=== PATIENT | female | born 1995 | race Caucasian/White ===

== ENCOUNTER 2024-07-03 17:14 | Inpatient (IN) ==
--- OUTSIDE RECORDS SUMMARY | 2024-07-04 08:14 | External Medical Summary | Summary of Care ---
Author Name Unknown Organization [facility] Address [address] [place] [address] Phone [phone] Care Team Providers Care Automotive Brake Specialist Name Role Phone Unavailable Primary Care Provider Unavailabl e Reason for Visit * Reason Comments Outpatient Testing Encounter Details Date Type Department Care Team (Late st Contact Info) Description 06/20/2024 8:40 AM EST Laboratory Laboratory, [facility] [address] [place] [id number] [facility] [address] [place] [address] Arrived Allergies No known active allergiesdocumented as of this encounter (statuses as of 06/20/2024) Medications 28-0.8 MG Oral Tablet Take by mouth. Active Breast PumpIndications :Normal in third trimester For lactating mother for . 1 Each 4 Active Methylphenidate HCl ER (OSM) 27 MG Oral Tablet Extended Release (Concerta) 4 Active documented as of this encounter (statuses as of 06/20/2024) Active Problems Problem Noted Date Diagnosed Date Rubella non-immune status, antepartum 12/29/2023 Depressive disorder 12/28/2023 Normal 12/28/2023 Depression complicating , antepartum Overview (12/28/2023): Was on Concerta for ADHD, stopped early . Estimated Date of Delivery Comme nts Yes 07/03/2024 Based on last me nstrual period of 09/27/2023 documented as of this encounter (statuses as of 06/20/2024) Immunizations Name Administration Dates Next Due TDAP, Age 7 and older, IM (Adacel) 04/28/2024 documented as of this encounter Social History Tobacco Use Types Packs/Day Years Used Date Smoking Tobacco: Never Smokeless Tobacco: Never Alcohol Use Standard Drinks/Week Comments Not Currently 0 (1 standard drink = 0.6 oz pur e alcohol) Hunger Vital Sign Answer Date Recorded Within the past 12 months, y ou worried that your food would run out before you got the money to buy more. Never true 12/14/19 24 Within the past 12 months, t he food you bought just didn't last and you didn't have money to get more. Never true 12/14/2023 [place] Depression Scale Answer Date Recorded [place] Depression Scale Total 16 04/28/2024 The thought of harming myself has occurred to me . Hardly ever 04/28/2024 Childcare Answer Date Recorded Do you feel overwhelmed with taking care of a child, family member or friend? No 12/14/2023 Does your family need help f inding childcare? (Household - for ages 0-17 years) Not on file 12/14/2023 Clothing Answer Date Recorded Have you been unable to get clothing when it was really needed? No 12/14/2023 Is your family able to get c lothes or diapers when needed? (Household - for ages 0-17 years) Not on file 12/14/2023 Personal Safety Answer Date Recorded Do you feel unsafe or have concerns for your saf ety? No 12/14/2023 Do you have concerns for you r family's safety? (Household - for ages 0-17 years) Not on file 12/14/2023 Utilities Answer Date Recorded Do you have trouble paying y our heating, water, or electric bill? No 12/14/2023 Is your family able to pay t he heat, water, or electric bill? (Household - for ages 0-17 years) Not on file 12/14/2023 Does your family have access to good internet? (Household - for ages 0-17 years) Not on file 12/14/2023 Employment Status Answer Date Recorded Are you unemployed or without regular income? No 12/14/2023 Does the household have a re gular source of income? (Household - for ages 0-17 years) Not on file 12/14/2023 Social Connections Answer Date Recorded How often do you feel lonely or isolated from th ose around you? Rarely 12/14/2023 Financial Resource Strain Answer Date R ecorded Do you have any trouble payi ng for your medications, or do you think you might in the future? No 12/14/2023 Does your family have troubl e paying for medicine? (Household - for ages 0-17 years) Not on file 12/14/2023 Transportation Needs Answer Date Record ed Do you have trouble getting a ride to medical visits or work? (Adult - for ages 18 years and over) Not on file 12/14/2023 Does your family have a hard time getting a ride to doctors visits? (Household - for ages 0-17 years) Not on file 12/14/2023 Has lack of transportation k ept you from medical appointments, meetings, work, or from getting things needed for daily living? Check all that apply. No 12/14/2023 Do you (or your family) have trouble finding or paying for a ride (transportation)? (Household - for ages 0-17 years) Not on file 12/14/2023 Housing Stability Answer Date Recorded Do you currently live in a s helter or have no steady place to sleep at night? No 12/14/2023 Do you think you are at risk of becoming homeless? (Adult - for ages 18 years and over) Not on file 12/14/2023 Does your family worry about paying for your home or becoming homeless? (Household - for ages 0-17 years) Not on file 0 12/14/2023 Are you homeless or worried that you might be in the future? No 12/14/2023 Are you (or your family) familia eless or worried that you might be in the future? (Household - for ages 0-17 years) Not on file Food Insecurity Answer Date Recorded Do you need food for this week? No 12/14/2023 Are you able to get enough f ood for your family? (Household - for ages 0-17 years) Not on file 12/14/2023 Does your family need food t his week? (Household - for ages 0-17 years) Not on file 12/14/2023 Do you always have enough fo od for your family? (Household - for ages 0-17 years) Not on file 12/14/2023 Estimated Date of Delivery Comme nts Yes 07/03/2024 Based on last me nstrual period of 09/27/2023 Sex and Gender Information Value Date Recorded Sex Assigned at Female 12/14/2023 10:12 AM EDT Legal Sex Female 6:08 AM EST Gender Identity Female 12/14/2023 10:12 AM EDT Sexual Orientation Straight 12/14/2023 10 :12 AM EDT documented as of this encounter Plan of Treatment Upcoming Encounters Date Type Department Care Team (Late st Contact Info) Description 06/23/2024 1:30 PM EST Nurse Only Gynecology/Obstetrics [facility] [address] [facility] [place] [address] Gw, Nurse Obgyn Injection [address] [place] [address] 06/29/2024 4:30 PM EST Office Visit Gynecology/Obstetrics [facility] [address] [place] [address] Diandra Guevara PA-C [address] [place] [address] 07/04/2024 10:00 AM EST Office Visit Gynecology/Obstetrics [facility] [address] [place] [address] Sarita Aviles CRNP [address] [place] [address] 07/21/2024 10:00 AM EST Telemedicine Psychology, [place] [address] [place] [address] Odalis Boucher PsyD [address], [place] [id number] Health Maintenance Due Date Last Done Comments Depression Monitoring 2006 COVID-19 Vaccine ( - 2023-25 season) 2024 Influenza Vaccine (FLU shot) (#1) 2024 Pap Smear 12/27/2026 12/28/2023 DTap/Tdap Vaccines (6 - Td or Tdap) 04/28/2034 04/28/2024, 03/24/1996, 06/29/1995, Additional history exists Hepatitis B Vaccine Completed 09/07/1995, 02/19/1995, 1994 HPV (Gardasil) Vaccine Aged Out No lo nger eligible based on patient's age to complete this topic MENINGOCOCCAL (MENACTRA/MENVEO) Aged Out No longer eligible based on patient's age to complete this topic Pneumococcal Vaccine: Pediatrics (0 to 5 Years) and At-Risk Patients (6 to 64 Years) Aged Out No longer eligible based on patient's age to complete this topic documented as of this encounter Goals Goal Patient Goal Type Associated Problems Recent Progress Patient-Stated? Author Reminders Care Plan OB Reminders No Dario, Provider documented as of this encounter Medical Devices Not on filedocumented as of this encounter Additional Health Concerns Active Problems Noted Date Diagnosed Date OB Reminders 01/15/2024 documented as of this encounter
--- OUTSIDE RECORDS SUMMARY | 2024-07-04 08:14 | External Medical Summary | Summary of Care ---
Author Name Unknown Organization [facility] Address [address] [place] [facility] [place] [address] Phone [phone] Care Team Providers Care Loop Tacker Name Role Phone Unavailable Primary Care Provider Unavailabl e Reason for Visit * Reason Comments Return Visit Encounter Details Date Type Department Care Team (Late st Contact Info) Description 06/29/2024 4:30 PM EST Office Visit Gynecology/Obstetric s [facility] [address] [place] [address] Diandra Guevara PA-C [address] [place] [address] Normal in third trimester*; Depression complicating , antepartum; Rubella non-immune status, antepartum Allergies No known active allergiesdocumented as of this encounter (statuses as of 06/29/2024) Medications 28-0.8 MG Oral Tablet Take by mouth. Active Breast PumpIndications :Normal in third trimester For lactating mother for . 1 Each 4 Active Methylphenidate HCl ER (OSM) 27 MG Oral Tablet Extended Release (Concerta) 4 Active documented as of this encounter (statuses as of 06/29/2024) Active Problems Problem Noted Date Diagnosed Date Rubella non-immune status, antepartum 12/29/2023 Depressive disorder 12/28/2023 Normal 12/28/2023 Depression complicating , antepartum Overview (12/28/2023): Was on Concerta for ADHD, stopped early . Estimated Date of Delivery Comme nts Yes 07/03/2024 Based on last me nstrual period of 09/27/2023 documented as of this encounter (statuses as of 06/29/2024) Immunizations Name Administration Dates Next Due TDAP, [...] money to get more. Never true 12/14/2023 [place] Depression Scale Answer Date Recorded [place] Depression Scale Total 16 04/28/2024 The thought [...] AM EDT documented as of this encounter Last Filed Vital Signs Vital Sign Reading Time Taken Comments Blood Pressure 122/84 06/29/2024 4:25 PM EST Pulse - - Temperature - - Respiratory Rate - - Oxygen Saturation - - Inhaled Oxygen Concentration - - Weight 98 kg (216 lb) 06/29/2024 4:25 PM EST Height - - Body Mass Index 37.08 06/12/2024 1:53 PM EST documented in this encounter Progress Notes * Diandra Guevara PA-C - 06/29/2024 4:51 PM EST 39w3d Doing well. Had two borderline BP two weeks ago. Labs normal and pressures have seemed to normalize. Her blood pressure today is 122/84. Denies VB, LOF, contractions. Having some BH contractions rather. Baby is active. Would like cervical check. Also asking about membrane sweep however she is undecided. Ultimately she decided against it today. IOL scheduled 07/04/2023. Labor and preeclampsia precautions reviewed in meantime. Rework Machine Operator Documentation Provider requested pediatrics teacher. Name of pediatrics teacher: Keisha Yang LPN Cervix: 3 posterior Diandra Guevara PA-C * Keisha Yang LPN - 06/29/2024 4:26 PM EST 39w3d Denies vaginal bleeding/rom + movement [place] queta Requesting cervical check today documented in this encounter Plan of Treatment Upcoming Encounters Date Type Department Care Team (Late st Contact Info) Description 07/21/2024 10:00 AM EST Telemedicine [facility], [place] [address] [place] [address] Odalis Boucher, [facility] [address] [place] [address] Health Maintenance Due Date Last Done Comments Depression Monitoring 2006 COVID-19 Vaccine (2023- season) 2024 Influenza Vaccine (FLU shot) (#1) [...] 5 Years) and At-Risk Patients (6 to 18 Years and 19+ Years) Aged Out No longer eligib le based on patient's age to complete this topic documented as of this encounter Goals Goal Patient Goal Type Associated Problems Recent Progress Patient-Stated? Author Reminders Care Plan OB Reminders No Jessiehart, Provider documented as of this encounter Medical Devices Not on filedocumented as of this encounter Visit Diagnoses Diagnosis Normal in third trimester- Primary Depression complicating , antepartum Mental disorders of mother, antepartum Rubella non-immune status, antepartum Other specified complication, antepartum documented in this encounter Additional Health Concerns Active Problems Noted Date Diagnosed Date OB Reminders 01/15/2024 documented as of this encounter
--- OUTSIDE RECORDS SUMMARY | 2024-07-04 08:14 | External Medical Summary | Summary of Care ---
Author Name Unknown Organization [facility] Address [address] [place] [address] Phone [phone] Care Team Providers Care Concrete Products Machine Operator Name Role Phone Unavailable Primary Care Provider Unavailabl e Reason for Visit * Reason Comments Blood Pressure Check Encounter Details Date Type Department Care Team (Late st Contact Info) Description 06/23/2024 1:30 PM EST Nurse Only Gynecology/Obstetrics [facility] [address] [facility] [place] [address] Gw, Nurse Obgyn Injection [address] [facility] [place] [address] Blood Pressure Check Allergies No known active allergiesdocumented as of this encounter (statuses as of 06/23/2024) Medications 28-0.8 MG Oral Tablet Take by mouth. Active Breast PumpIndications :Normal in third trimester For lactating mother for . 1 Each 4 Active Methylphenidate HCl ER (OSM) 27 MG Oral Tablet Extended Release (Concerta) 4 Active documented as of this encounter (statuses as of 06/23/2024) Active Problems Problem Noted Date Diagnosed Date Rubella non-immune status, antepartum 12/29/2023 Depressive disorder 12/28/2023 Normal 12/28/2023 Depression complicating , antepartum Overview (12/28/2023): Was on Concerta for ADHD, stopped early . Estimated Date of Delivery Comme nts Yes 07/03/2024 Based on last me nstrual period of 09/27/2023 documented as of this encounter (statuses as of 06/23/2024) Immunizations Name Administration Dates Next Due TDAP, [...] money to get more. Never true 12/14/2023 [place] Depression Scale Answer Date Recorded [place] Depression Scale Total 16 04/28/2024 The thought [...] Reading Time Taken Comments Blood Pressure 122/84 06/23/2024 1:42 PM EST Pulse - - Temperature - - Respiratory Rate - - Oxygen Saturation - - Inhaled Oxygen Concentration - - Weight - - Height - - Body Mass Index - - documented in this encounter Progress Notes * Dahlia Morin CMA - 06/23/2024 1:42 PM EST 38w4d BP check today. Reviewed with Mark in office today. Patient advised to keep appointment on 06/29 and call with any issues/symptoms. Pt agreeable to plan. documented in this encounter Plan of Treatment Upcoming Encounters Date Type Department Care Team (Late st Contact Info) Description 06/29/2024 4:30 PM EST [facility] [address] [place] [address] Diandra Guevara PA-C [address] [place] [address] 07/21/2024 10:00 AM EST Telemedicine [facility] [address] [place] [phone] Odalis Boucher [facility] [address] [place], [place] [phone] Health Maintenance Due Date Last Done Comments [...] Author Reminders Care Plan OB Reminders No Mychart, Provider documented as of this encounter Medical Devices Not on filedocumented as of this encounter Visit Diagnoses Diagnosis BP check- Primary Screening for hypertension Normal state, incidental Depression complicating , antepartum Mental disorders of mother, antepartum Rubella non-immune status, antepartum Other specified complication, antepartum documented in this encounter Additional Health Concerns Active Problems Noted Date Diagnosed Date OB Reminders 01/15/2024 documented as of this encounter
--- OUTSIDE RECORDS SUMMARY | 2024-07-04 08:14 | External Medical Summary | Summary of Care ---
Author Name Unknown Organization [facility] Address [address] [place] [address] Phone [phone] Care Team Providers Care Clam Sorter Name Role Phone Unavailable Primary Care Provider Unavailabl e Reason for Visit * Reason Comments Return Visit Encounter Details Date Type Department Care Team (Late st Contact Info) Description 06/20/2024 8:00 AM EST Office Visit Gynecology/Obstetric s [facility] [address] [place] [address] Sarita Aviles CRNP [address] [place] [address] Normal in third trimester*; Depression complicating , [...] 06/20/2024) Immunizations Name Administration Dates Next Due DTP/HIB (Tetramune) 03/24/1996, 6,04/23/1995, 995 Hepatitis B, 0-19 yrs 09/07/1995,02/19/1995,07/0 06/1994 MMR - Measles/Mumps/Rubella Vaccine 03/24/1996 OPV - Polio Virus Vaccine (Oral) 03/24/1996,03/29,02/19/1995 TDAP, Age 7 and older, IM (Adacel) 04/28/2024 Varicella Vaccine (Chicken Pox) 12/08/1995 documented as of this encounter Social History [...] money to get more. Never true 12/14/2023 [place] Depression Scale Answer Date Recorded [place] Depression Scale Total 16 04/28/2024 The thought [...] No 12/14/2023 Does the household have a unm children's hospitallar source of income? (Household - for ages [...] Sign Reading Time Taken Comments Blood Pressure 134/88 06/20/2024 7:57 AM EST Pulse - - Temperature - - Respiratory Rate - - Oxygen Saturation - - Inhaled Oxygen Concentration - - Weight 97.7 kg (215 lb 6.4 oz) 06/20/2024 7:57 A M EST Height - - Body Mass Index 36.97 06/12/2024 1:53 PM EST documented in this encounter Progress Notes * Sarita Aviles CRNP - 06/20/2024 8:13 AM EST 38w1d BP remains mildly elevated. Denies headache, visual changes, RUQ pain. Labs today. No proteinuria on site dip. Baby is active. Denies contractions, bleeding, LOF. IOL scheduled for 07/04. Return in 2-3 days for BP check. BIRGIT Johnston * Dahlia Morin CMA - 06/20/2024 7:57 AM EST 38w1d Denies any concerns documented in this encounter Plan of Treatment Upcoming Encounters Date Type Department Care Team (Late st Contact Info) Description 06/23/2024 1:30 PM EST Nurse Only Gynecology/Obstetrics [facility] [address] [place] [address] Gw, Nurse Obgyn Injection [address] [place] [address] 06/29/2024 4:30 PM EST Office Visit Gynecology/Obstetrics [facility] [address] [place] [address] Diandra Guevara PA-C [address] [place] [address] 07/04/2024 10:00 AM EST Office Visit Gynecology/Obstetrics [facility] [address] [place] [address] Sarita Aviles CRNP [address] [place] [address] 07/21/2024 10:00 AM EST Telemedicine [facility] [place] [address] [place] [phone] Odalis Boucher PsyD [address] [place] [address] Pending Results Name Type Priority Associated Diagnoses Date /Time COMPREHENSIVE METABOLIC PANEL Lab Routine Normal in third trimester 06/20/2024 8:35 AM EST PROTEIN/ CREATININE RATIO, URINE Lab Routine Normal in third trimester 06/20/2024 8:42 AM EST CBC Lab Routine Normal in third trimester 06/20/2024 8:35 AM EST Health Maintenance Due Date Last Done Comments Depression Monitoring 2006 COVID-19 Vaccine ( season) 2024 Influenza Vaccine (FLU shot) (#1) [...] Not on filedocumented as of this encounter Procedures Procedure Name Priority Date/Time Associated Diagnosis Comments URINALYSIS OBSTETRICS, POINT OF CARE Routine 06/20/2024 8:18 AM EST Normal in third trimester documented in this encounter Results * URINALYSIS OBSTETRICS, POINT OF CARE (06/20/2024 8:18 AM EST) Color, Urine Yellow Light Yellow, Yellow 06/20/2024 8:22 AM EST [facility] [place] [facility]10 Clarity, Urine Clear Clear 06/20/2024 8:22 AM EST [facility] [place] [facility] Glucose, Urine Negative Negative mg/dL 06/20/2024 8:22 AM EST [facility] [place] [facility] Bilirubin, Urine Negative Negative 06/20/2024 8:22 AM EST [facility] [place] [facility] Ketone, Urine Negative Negative mg/dL 06/20/2024 8:22 AM EST [facility] [place] [facility] Specific [place], Urine 1.025 1.003 - 1.030 06/20/2024 8:22 AM EST [facility] [place] [facility] Blood, Urine Negative Negative 06/20/2024 8:22 AM EST [facility] [place] [facility] pH, Urine 7.0 5.0, 5.5, 6.0, 6.5, 7.0, 7.5 units 06/20/2024 8:22 AM EST [facility] [place] [facility] Protein, Urine Negative Negative mg/dL 06/20/2024 8:22 AM EST [facility] [place] [facility] Urobilinogen, Urine 0.2 0.2, 1.0 mg/dL 06/20/2024 8:22 AM EST [facility] [place] [facility] Nitrite, Urine Negative Negative 06/20/2024 8:22 AM EST [facility] [place] [facility] Esterase, Urine Negative Negative 06/20/2024 8:22 AM EST [facility] [place] [facility] Urine 06/20/2024 8:18 AM EST 06/20/2024 8:22 AM EST us Sarita Christian McHail DIRECTOR [employer] LAB POINT OF CARE TE ST DOCKED DEVICE UNSOLICITED RESULTS Final Result [facility] [place] [facility] [address] [facility] [place] [address] documented in this encounter Visit Diagnoses Diagnosis Normal in third trimester- Primary Depression complicating , antepartum Mental disorders of mother, antepartum Rubella non-immune status, antepartum Other specified complication, antepartum documented in this encounter Additional Health Concerns Active Problems Noted Date Diagnosed Date OB Reminders 01/15/2024 documented as of this encounter
--- OUTSIDE RECORDS SUMMARY | 2024-07-04 08:15 | External Medical Summary | Summary of Care ---
Author Name Unknown Organization [facility] Address [address] [place] [address] Phone [phone] Care Team Providers Care Handbook Writer Name Role Phone Unavailable Primary Care Provider Unavailabl e Reason for Visit * Reason Comments Return Visit Encounter Details Date Type Department Care Team (Late st Contact Info) Description 06/05/2024 4:00 PM EST Office Visit Gynecology/Obstetric [facility] [address] [place] [address] Kirk García MD [address] [place] [address] Normal in third trimester*; Depression complicating , antepartum; Rubella non-immune status, antepartum Allergies No known active allergiesdocumented as of this encounter (statuses as of 06/05/2024) Medications 28-0.8 MG Oral Tablet Take by mouth. Active Breast PumpIndications :Normal in third trimester For lactating mother for . 1 Each 4 Active Methylphenidate HCl ER (OSM) 27 MG Oral Tablet Extended Release (Concerta) 4 Active documented as of this encounter (statuses as of 06/05/2024) Active Problems Problem Noted Date Diagnosed Date Rubella non-immune status, antepartum 12/29/2023 Depressive disorder 12/28/2023 Normal 12/28/2023 Depression complicating , antepartum Overview (12/28/2023): Was on Concerta for ADHD, stopped early . Estimated Date of Delivery Comme nts Yes 07/03/2024 Based on last me nstrual period of 09/27/2023 documented as of this encounter (statuses as of 06/05/2024) Immunizations Name Administration Dates Next Due TDAP, [...] money to get more. Never true 12/14/2023 [place] Depression Scale Answer Date Recorded [place] Depression Scale Total 16 04/28/2024 The thought [...] Sign Reading Time Taken Comments Blood Pressure 114/72 06/05/2024 4:04 PM EST Pulse - - Temperature - - Respiratory Rate - - Oxygen Saturation - - Inhaled Oxygen Concentration - - Weight 97.1 kg (214 lb) 06/05/2024 4:04 PM EST Height 162.6 cm (5' 4") 06/05/2024 4:04 PM EST Body Mass Index 36.73 06/05/2024 4:04 PM EST documented in this encounter Progress Notes * Kirk García MD - 06/05/2024 4:27 PM EST Pt doing well No complaints GBS culx obtained RTC 1 week documented in this encounter Nursing Notes * Kamla Sewell LPN - 06/05/2024 3:56 PM EST 36w0d GBS today documented in this encounter Plan of Treatment Upcoming Encounters Date Type Department Care Team (Late st Contact Info) Description 07/21/2024 10:00 AM EST Telemedicine [address] [phone] Odalis Boucher, PsyD [address] [place] [address] Pending Results Name Type Priority Associated Diagnoses Date /Time GROUP B STREP CULTURE/PCR Lab Routine Normal in third trimester Depression complicating , antepartum Rubella non-immune status, antepartum 06/05/2024 4:38 PM EST Health Maintenance Due Date Last Done [...] Author Reminders Care Plan OB Reminders No Dario Provider documented as of this encounter Medical [...]
--- OUTSIDE RECORDS SUMMARY | 2024-07-04 08:15 | External Medical Summary | Summary of Care ---
Author Name Unknown Organization [facility] Address [address] [place] [address] Phone [phone] Care Team Providers Care Undercar Specialist Name Role Phone Unavailable Primary Care Provider Unavailabl e Reason for Visit * Reason Comments Return Visit Encounter Details Date Type Department Care Team (Late st Contact Info) Description 06/05/2024 4:00 PM EST Office Visit Gynecology/Obstetric [facility] [address] [place] [address] Kirk García MD [address] [place] [address] Normal in third trimester*; Depression complicating , antepartum; Rubella non-immune status, antepartum Allergies No known active allergiesdocumented as of this encounter (statuses as of 06/06/2024) Medications 28-0.8 MG Oral Tablet Take by mouth. Active Breast PumpIndications :Normal in third trimester For lactating mother for . 1 Each 4 Active Methylphenidate HCl ER (OSM) 27 MG Oral Tablet Extended Release (Concerta) 4 Active documented as of this encounter (statuses as of 06/06/2024) Active Problems Problem Noted Date Diagnosed Date Rubella non-immune status, antepartum 12/29/2023 Depressive disorder 12/28/2023 Normal 12/28/2023 Depression complicating , antepartum Overview (12/28/2023): Was on Concerta for ADHD, stopped early . Estimated Date of Delivery Comme nts Yes 07/03/2024 Based on last me nstrual period of 09/27/2023 documented as of this encounter (statuses as of 06/06/2024) Immunizations Name Administration Dates Next Due TDAP, [...] money to get more. Never true 12/14/2023 [place] Depression Scale Answer Date Recorded [place] Depression Scale Total 16 04/28/2024 The thought [...] Care Team (Late st Contact Info) Description 06/12/2024 2:00 PM EST Office Visit Gynecology/Obstetrics [facility] [address] [facility] [place] [address] Kirk García MD [address] [place] [address] 07/21/2024 10:00 AM EST Telemedicine [facility], [place] [address] [place] [address] [facility] [address] [place] [address] Pending Results Name Type Priority [...]
--- OUTSIDE RECORDS SUMMARY | 2024-07-04 08:15 | External Medical Summary ---
Author Name Unknown Address Unknown Organization K0G:[facility] [place] [address] [place] [address] Laboratory Report Ordering Provider Test Date Status ENZO BOOTH 06/20/2024 08:18:00 Final Observation Date Value Abnormality Reference (Units ) Status Color of Urine by Auto 06/20/2024 08:18:00 Yellow Light Yellow, Yellow Final Clarity, Urine 06/20/2024 08:18:00 Clear Clear Final Glucose [Mass/volume] in Urine by Automated test strip 06/20/2024 08:18:00 Negative Negative (mg/dL) Final Bilirubin.total [Presence] in Urine by Automated test strip 06/20/2024 08:18:00 Negative Negative Final Ketones [Mass/volume] in Urine by Automated test strip 06/20/2024 08:18:00 Negative Negative (mg/dL) Final Specific gravity, Urine 06/20/2024 08:18:00 1.025 1.003-1.030 Final Hemoglobin [Presence] in Urine by Automated test strip 06/20/2024 08:18:00 Negative Negative Final pH, Urine 06/20/2024 08:18:00 7.0 5.0, 5.5, 6.0, 6.5, 7.0, 7.5 (units) Final Protein [Mass/volume] in Urine by Automated test strip 06/20/2024 08:18:00 Negative Negative (mg/dL) Final Urobilinogen, Urine 06/20/2024 08:18:00 0.2 0.2, 1.0 (mg/dL) Final Nitrite [Presence] in Urine by Automated test strip 06/20/2024 08:18:00 Negative Negative Final Leukocyte esterase [Presence] in Urine by Automated test strip 06/20/2024 08:18:00 Negative Negative Final Performing Location [facility] [place] [address] 0 - [address] [place] [address]
--- OUTSIDE RECORDS SUMMARY | 2024-07-04 08:15 | External Medical Summary | Summary of Care ---
Author Name Unknown Organization [facility] Address [address] [place] [address] Phone [phone] Care Team Providers Care Certified Tower Climber Name Role Phone Unavailable Primary Care Provider Unavailabl e Reason for Visit * Reason Comments Return Visit Encounter Details Date Type Department Care Team (Late st Contact Info) Description 05/30/2024 1:30 PM EST Office Visit Gynecology/Obstetric s [facility] [address] [place] [address] Sarita Aviles CRNP [address] [place] [address] Normal in third trimester*; Depression complicating , antepartum; Rubella non-immune status, antepartum Allergies No known active allergiesdocumented as of this encounter (statuses as of 05/30/2024) Medications 28-0.8 MG Oral Tablet Take by mouth. Active Breast PumpIndications :Normal in third trimester For lactating mother for . 1 Each 4 Active Methylphenidate HCl ER (OSM) 27 MG Oral Tablet Extended Release (Concerta) 4 Active documented as of this encounter (statuses as of 05/30/2024) Active Problems Problem Noted Date Diagnosed Date Rubella non-immune status, antepartum 12/29/2023 Depressive disorder 12/28/2023 Normal 12/28/2023 Depression complicating , antepartum Overview (12/28/2023): Was on Concerta for ADHD, stopped early . Estimated Date of Delivery Comme nts Yes 07/03/2024 Based on last me nstrual period of 09/27/2023 documented as of this encounter (statuses as of 05/30/2024) Immunizations Name Administration Dates Next Due TDAP, [...] money to get more. Never true 12/14/2023 [place] Depression Scale Answer Date Recorded [place] Depression Scale Total 16 04/28/2024 The thought [...] Sign Reading Time Taken Comments Blood Pressure 124/68 05/30/2024 1:21 PM EST Pulse - - Temperature - - Respiratory Rate - - Oxygen Saturation - - Inhaled Oxygen Concentration - - Weight 95.5 kg (210 lb 9.6 oz) 05/30/2024 1:21 P M EST Height - - Body Mass Index 36.15 05/10/2024 8:09 AM EST documented in this encounter Progress Notes * Sarita Aviles CRNP - 05/30/2024 1:25 PM EST 35w1d Taking Concerta a few times a week, and her mood/focus is incredibly improved. No concerns today. Baby is active. Denies contractions, bleeding, LOF. BIRGIT Johnston * Dahlia Morin CMA - 05/30/2024 1:21 PM EST 35w1d Denies any concerns documented in this encounter Plan of Treatment Upcoming Encounters Date Type Department Care Team (Late st Contact Info) Description 07/21/2024 10:00 AM EST Telemedicine Psychology, [address] [place] [address] Sander Odalis Sin, [facility] [address] [place] [address] Health Maintenance Due Date Last Done Comments [...]
--- OUTSIDE RECORDS SUMMARY | 2024-07-04 08:15 | External Medical Summary | Summary of Care ---
Author Name Unknown Organization [facility] Address [address] [place] [address] Phone [phone] Care Team Providers Care Anti Tank Missileman Name Role Phone Unavailable Primary Care Provider Unavailabl e Reason for Visit * Reason Comments Return Visit Encounter Details Date Type Department Care Team (Late st Contact Info) Description 06/05/2024 4:00 PM EST Office Visit Gynecology/Obstetric [facility] [address] [place] [address] Kirk García MD [address] [place] [address] Normal in third trimester*; Depression complicating , [...] money to get more. Never true 12/14/2023 [place] Depression Scale Answer Date Recorded [place] Depression Scale Total 16 04/28/2024 The thought [...] Info) Description 07/21/2024 10:00 AM EST Telemedicine [address] [address] Odalis Boucher, PsyD [address] [place] [address] Pending Results Name Type Priority Associated Diagnoses [...]
--- OUTSIDE RECORDS SUMMARY | 2024-07-04 08:15 | External Medical Summary | Summary of Care ---
Author Name Unknown Organization [facility] Address [address] [place] [address] Phone [phone] Care Team Providers Care Gang Tailer Name Role Phone Unavailable Primary Care Provider Unavailabl e Reason for Visit * Reason Comments Return Visit Encounter Details Date Type Department Care Team (Late st Contact Info) Description 06/20/2024 8:00 AM EST Office Visit Gynecology/Obstetric s [facility] [address] [place] [address] Sarita Aviles CRNP [address] [place] [address] Normal in third trimester*; Depression complicating , [...] money to get more. Never true 12/14/2023 [place] Depression Scale Answer Date Recorded [place] Depression Scale Total 16 04/28/2024 The thought [...] 06/23/2024 1:30 PM EST Nurse Only Gynecology/Obstetrics [facility] [address] [facility] [place] [address] Gw, Nurse Obgyn Injection [address] [place] [address] 06/29/2024 4:30 PM EST Office Visit Gynecology/Obstetric[facility] [address] [facility] [place] [address] Diandra Guevara PA-C [address] [place], [place] [address] 07/04/2024 10:00 AM EST Office Visit Gynecology/Obst[facility] [address] [facility] [place] [address] Sarita Aviles CRNP [address] [place] [address] 07/21/2024 10:00 AM EST Telemedicine Psychology, [place] [address] [place] [address] Odalis Boucher [facility] [address] [place] [address] Scheduled Orders Name Type Priority Associated Diagnoses Orde r Schedule COMPREHENSIVE METABOLIC PANEL Lab Routine Normal in third trimester Ordered: 06/20/2024 PROTEIN/ CREATININE RATIO, URINE Lab Routine Normal in third trimester Ordered: 06/20/2024 CBC Lab Routine Normal in third trimester Ordered: 06/20/2024 Health Maintenance Due Date Last Done Comments [...] Author Reminders Care Plan OB Reminders No Ilanat, Provider documented as of this encounter Medical [...] AM EST [facility] [place] [address] Specific [place], Urine 1.025 1.003 - 1.030 06/20/2024 8:22 [...] 1.0 mg/dL 06/20/2024 8:22 AM EST LABORATORY [facility] [place] 57-[address] Nitrite, Urine Negative Negative 06/20/2024 8:22 AM EST LABORATORY [facility] [place] 57[address] Esterase, Urine Negative Negative 06/20/2024 8:22 AM EST LABORATORY [facility] [place] 57-10 Urine 06/20/2024 8:18 AM EST 06/20/2024 8:22 AM EST us Sarita Aviles ASSEMBLY LINE ROBOT OPERATOR LAB POINT OF CARE TE ST DOCKED DEVICE UNSOLICITED RESULTS Final Result LAB[facility]ATORY [facility] [place] [address] [facility] [address] documented in this encounter Visit Diagnoses Diagnosis Normal in third trimester- Primary Depression complicating , antepartum Mental disorders of mother, antepartum Rubella non-immune status, antepartum Other specified complication, antepartum documented in this encounter Additional Health Concerns Active Problems Noted Date Diagnosed Date OB Reminders 01/15/2024 documented as of this encounter
--- OUTSIDE RECORDS SUMMARY | 2024-07-04 08:15 | External Medical Summary ---
Author Name Unknown Address Unknown Organization [facility] - [address] [place] [address] Laboratory Report Ordering Provider Test Date Status ENZO BOOTH 06/20/2024 08:35:49 Final Observation Date Value Abnormality Reference (Units ) Status WBC, Total 06/20/2024 08:35:49 10.49 4.00-10.8 0 (K/uL) Final RBC 06/20/2024 08:35:49 4.28 3.85-5.15 (M/uL) Final Hemoglobin 06/20/2024 08:35:49 13.5 12.0-15.3 (g/dL) Final HCT 06/20/2024 08:35:49 40.4 36.0-45.2 (%) Final MCV 06/20/2024 08:35:49 94.4 81.5-97.5 (fL) Final MCH 06/20/2024 08:35:49 31.5 27.0-34.0 (pg) Final MCHC 06/20/2024 08:35:49 33.4 32.0-36.0 (g/dL) Final RDW 06/20/2024 08:35:49 13.1 11.5-15.5 (%) Final Platelets 06/20/2024 08:35:49 251 140-400 (K /uL) Final MPV 06/20/2024 08:35:49 11.3 6.6-11.1 ( fL) Final Performing Location [facility] 0 - [address] [place] [address]
--- OUTSIDE RECORDS SUMMARY | 2024-07-04 08:15 | External Medical Summary ---
Author Name Unknown Address Unknown Organization K0G:[facility] [place] [address] - [address] [facility] [address] Laboratory Report Ordering Provider Test Date Status EVELYN SANABRIA 06/12/2024 14:09:00 Final Observation Date Value Abnormality Reference (Units ) Status Color of Urine by Auto 06/12/2024 14:09:00 Yellow Light Yellow, Yellow Final Clarity, Urine 06/12/2024 14:09:00 Clear Clear Final Glucose [Mass/volume] in Urine by Automated test strip 06/12/2024 14:09:00 Negative Negative (mg/dL) Final Bilirubin.total [Presence] in Urine by Automated test strip 06/12/2024 14:09:00 Negative Negative Final Ketones [Mass/volume] in Urine by Automated test strip 06/12/2024 14:09:00 Negative Negative (mg/dL) Final Specific gravity, Urine 06/12/2024 14:09:00 1.015 1.003-1.030 Final Hemoglobin [Presence] in Urine by Automated test strip 06/12/2024 14:09:00 Negative Negative Final pH, Urine 06/12/2024 14:09:00 6.5 5.0, 5.5, 6.0, 6.5, 7.0, 7.5 (units) Final Protein [Mass/volume] in Urine by Automated test strip 06/12/2024 14:09:00 Negative Negative (mg/dL) Final Urobilinogen, Urine 06/12/2024 14:09:00 0.2 0.2, 1.0 (mg/dL) Final Nitrite [Presence] in Urine by Automated test strip 06/12/2024 14:09:00 Negative Negative Final Leukocyte esterase [Presence] in Urine by Automated test strip 06/12/2024 14:09:00 Negative Negative Final Performing Location [facility]ATORY [place] [address] 0 - [address] [place] [address]
--- OUTSIDE RECORDS SUMMARY | 2024-07-04 08:15 | External Medical Summary | Summary of Care ---
Author Name Unknown Organization [facility] Address [address] [place] [address] Phone [phone] Care Team Providers Care Cephalometric Technician Name Role Phone Unavailable Primary Care Provider Unavailabl e Reason for Visit * Reason Comments Return Visit Encounter Details Date Type Department Care Team (Late st Contact Info) Description 06/12/2024 2:00 PM EST Office Visit Gynecology/Obstetric [facility] [address] [place] [address] Kirk García MD [address] [place] [address] Normal in third trimester*; Depression complicating , antepartum; Rubella non-immune status, antepartum Allergies No known active allergiesdocumented as of this encounter (statuses as of 06/12/2024) Medications 28-0.8 MG Oral Tablet Take by mouth. Active Breast PumpIndications :Normal in third trimester For lactating mother for . 1 Each 4 Active Methylphenidate HCl ER (OSM) 27 MG Oral Tablet Extended Release (Concerta) 4 Active documented as of this encounter (statuses as of 06/12/2024) Active Problems Problem Noted Date Diagnosed Date Rubella non-immune status, antepartum 12/29/2023 Depressive disorder 12/28/2023 Normal 12/28/2023 Depression complicating , antepartum Overview (12/28/2023): Was on Concerta for ADHD, stopped early . Estimated Date of Delivery Comme nts Yes 07/03/2024 Based on last me nstrual period of 09/27/2023 documented as of this encounter (statuses as of 06/12/2024) Immunizations Name Administration Dates Next Due TDAP, [...] money to get more. Never true 12/14/2023 [place] Depression Scale Answer Date Recorded [place] Depression Scale Total 16 04/28/2024 The thought [...] Sign Reading Time Taken Comments Blood Pressure 138/96 06/12/2024 1:53 PM EST rep eat 132/84 Pulse - - Temperature - - Respiratory Rate - - Oxygen Saturation - - Inhaled Oxygen Concentration - - Weight 96.6 kg (213 lb) 06/12/2024 1:53 PM EST Height 162.6 cm (5' 4") 06/12/2024 1:53 PM EST Body Mass Index 36.56 06/12/2024 1:53 PM EST documented in this encounter Progress Notes * Kirk García MD - 06/12/2024 2:20 PM EST Pt doing well Initial BP; 138/96 Repeat BP 132/84 No proteinuria, no SOB,headache, Visual changes or RUQ pain Discussed Preeclampsia signs ans symptoms RTC 1 week documented in this encounter Nursing Notes * Kamla Sewell LPN - 06/12/2024 1:59 PM EST 37w0d Denies concerns. documented in this encounter Plan of Treatment Upcoming Encounters Date Type Department Care Team (Late st Contact Info) Description 06/20/2024 8:00 AM EST Office Visit Gynecology/Obstetrics [facility] [address] [place], [place] [address] Sarita Aviles CRNP [address] [place] [address] 06/29/2024 4:30 PM EST Office Visit Gynecology/Obstetrics [facility] [address] [place], [place] [address] Diandra Guevara PA-C [address] [place] [address] 07/04/2024 10:00 AM EST Office Visit Gynecology/Obstetrics [facility] [address] [place] [address] Sarita Aviles CRNP [address] [place] [address] 07/21/2024 10:00 AM EST Telemedicine Psychology, [place] [address] [place] [address] Odalis Boucher [facility] [address] [place], [place] [id number] Health Maintenance Due Date Last Done Comments [...] Comments URINALYSIS OBSTETRICS, POINT OF CARE Routine 06/12/2024 2:09 PM EST Normal in third trimester documented in this encounter Results * URINALYSIS OBSTETRICS, POINT OF CARE (06/12/2024 2:09 PM EST) Color, Urine Yellow Light Yellow, Yellow 06/12/2024 2:11 PM EST LAB[facility] [place] [address] Clarity, Urine Clear Clear 06/12/2024 2:11 PM EST [facility] [place] [address] Glucose, Urine Negative Negative mg/dL 06/12/2024 2:11 PM EST [facility] [place] 57[address] Bilirubin, Urine Negative Negative 06/12/2024 2:11 PM EST [facility] [place] 57[address] Ketone, Urine Negative Negative mg/dL 06/12/2024 2:11 PM EST [facility] [place] [address] Specific [place], Urine 1.015 1.003 - 1.030 06/12/2024 2:11 PM EST [facility] [place] [address] Blood, Urine Negative Negative 06/12/2024 2:11 PM EST [facility] [place] [address] pH, Urine 6.5 5.0, 5.5, 6.0, 6.5, 7.0, 7.5 units 06/12/2024 2:11 PM EST [facility] [place] [address] Protein, Urine Negative Negative mg/dL 06/12/2024 2:11 PM EST [facility] [place] [address] Urobilinogen, Urine 0.2 0.2, 1.0 mg/dL 06/12/2024 2:11 PM EST [facility] [place] [address] Nitrite, Urine Negative Negative 06/12/2024 2:11 PM EST [facility] [place] [address] Esterase, Urine Negative Negative 06/12/2024 2:11 PM EST [facility] Urine 06/12/2024 2:09 PM EST 06/12/2024 2:11 PM EST Kirk García MD LAB POINT OF CARE TE ST DOCKED DEVICE UNSOLICITED RESULTS Final Result Performing Organization Address City/State/[facility] Co de Phone Number [facility] [place] [address] documented in this encounter Visit Diagnoses Diagnosis Normal in third trimester- Primary Depression complicating , antepartum Mental disorders of mother, antepartum Rubella non-immune status, antepartum Other specified complication, antepartum documented in this encounter Additional Health Concerns Active Problems Noted Date Diagnosed Date OB Reminders 01/15/2024 documented as of this encounter
--- OUTSIDE RECORDS SUMMARY | 2024-07-04 08:15 | External Medical Summary ---
Author Name Unknown Address Unknown Organization K0G:LAB[facility]ATORY [place] [address] - [address] [place] [address] Laboratory Report Ordering Provider Test Date Status ENZO BOOTH 06/20/2024 08:35:49 Final Observation Date Value Abnormality Reference (Units ) Status BUN 06/20/2024 08:35:49 13 6-20 (mg/dL) Final Creatinine 06/20/2024 08:35:49 0.7 0.5-1.0 (mg/dL) Final Glomerular filtration rate/1.73 sq M.predicted [Volume Rate/Area] in Serum, Plasma or Blood by Creatinine-based formula (CKD-EPI) 06/20/2024 08:35:49 >90 >=60 (mL/min) Final eGFR is calculated based on the CKD-EPI 2020 equation. Sodium 06/20/2024 08:35:49 137 135-146 (m mol/L) Final Potassium 06/20/2024 08:35:49 3.8 3.5-5.1 (m mol/L) Final Cl 06/20/2024 08:35:49 101 98-107 (mm ol/L) Final CO2 06/20/2024 08:35:49 23 22-32 (mmo l/L) Final Anion gap 06/20/2024 08:35:49 13 7-15 (mmol /L) Final Glucose 06/20/2024 08:35:49 84 70-120 (mg /dL) Final Albumin 06/20/2024 08:35:49 3.5 Below low normal 3.8 -5.0 (g/dL) Final AST (Aspartate aminotransferase) 06/20/2024 08:35:49 16 10-35 (U/L) Fin al Alk Phos 06/20/2024 08:35:49 178 Above high normal 35 -130 (U/L) Final Bilirubin, Total 06/20/2024 08:35:49 0.4 <=1 .2 (mg/dL) Final Calcium 06/20/2024 08:35:49 9.6 8.4-10.2 ( mg/dL) Final Protein 06/20/2024 08:35:49 6.3 6.0-8.3 (g /dL) Final ALT (Alanine aminotransferase) 06/20/2024 08:35:49 18 10-35 (U/L) Guille emanuel Performing Location LABORATORY [place] [address] - [address] [facility] [address]
--- OUTSIDE RECORDS SUMMARY | 2024-07-04 08:15 | External Medical Summary ---
Author Name Unknown Address Unknown Organization K01:LABORATORY [place] [address] [place] [address] Laboratory Report Ordering Provider Test Date Status EVELYN SANABRIA 06/05/2024 16:38:08 Final Observation Date Value Abnormality Reference (Units ) Status Streptococcus agalactiae DNA [Presence] in Specimen by JUNIOR with probe detection 06/05/2024 16:38:08 Negative Negative Final No Group B Streptococcus det ected by culture-enhanced PCR (amplified probe). GBS GBSCT - [facility] 06/05/2024 16:38:08 0.0 Final GBS SPCCT - [facility] 06/05/2024 16:38:08 31.1 Final Performing Location [place] [facility] [place] [facility] [place] [address]
--- OUTSIDE RECORDS SUMMARY | 2024-07-04 08:15 | External Medical Summary | Summary of Care ---
Author Name Unknown Organization [facility] Address [address] [place] [address] Phone [phone] Care Team Providers Care Transmission Design Engineer Name Role Phone Unavailable Primary Care Provider Unavailabl e Reason for Visit * Reason Comments Return Visit Encounter Details Date Type Department Care Team (Late st Contact Info) Description 06/20/2024 8:00 AM EST Office Visit Gynecology/Obstetric s [facility] [address] [place] [address] Sarita Aviles CRNP [address] [place] [address] Normal in third trimester*; Depression complicating , [...] money to get more. Never true 12/14/2023 [place] Depression Scale Answer Date Recorded [place] Depression Scale Total 16 04/28/2024 The thought [...] Description 06/20/2024 8:40 AM EST Laboratory [facility] [address] [place] [phone] ClaySandhya nieves [facility] [address] [place], [place] [address] Arrived 06/23/2024 1:30 PM EST Nurse Only Gynecology/Obstetrics [facility] [place] [address] Gw, Nurse Obgyn Injection [address] [facility] [place], [place] [address] 06/29/2024 4:30 PM EST Office Visit Gynecology/Obstetrics [facility] [address] [place], [place] [address] Diandra Guevara PA-C [address] [facility] [place] [address] 07/04/2024 10:00 AM EST Office Visit Gynecology/Obstetrics [facility] [address] [place] [address] Sarita Aviles CRNP [address] [facility] [place] [address] 07/21/2024 10:00 AM EST Telemedicine Psychology, [place] [address] [place] [phone] Odalis [facility] [address] [place] [address] Pending Results Name Type Priority Associated Diagnoses Date /Time COMPREHENSIVE METABOLIC PANEL Lab Routine Normal in third trimester 06/20/2024 8:35 AM EST CBC Lab Routine Normal in third trimester 06/20/2024 8:35 AM EST Scheduled Orders Name Type Priority Associated Diagnoses Orde r Schedule PROTEIN/ CREATININE RATIO, URINE Lab Routine Normal [...] AM EST LABORATORY [place] [address] Specific [place], Urine 1.025 1.003 - 1.030 06/20/2024 8:22 [...] 8:22 AM EST LAB[facility]ORY [place] [address] Esterase, Urine Negative Negative 06/20/2024 8:22 AM EST LAB[facility] [place] [address]10 Urine 06/20/2024 8:18 AM EST 06/20/2024 8:22 AM EST Sarita GENAO LAB POINT OF CARE TE ST DOCKED DEVICE UNSOLICITED RESULTS Final Result LABORATORY [facility] [place] [address] [facility] [place] [address] documented in this encounter Visit Diagnoses Diagnosis Normal in third trimester- Primary Depression complicating , antepartum Mental disorders of mother, antepartum Rubella non-immune status, antepartum Other specified complication, antepartum documented in this encounter Additional Health Concerns Active Problems Noted Date Diagnosed Date OB Reminders 01/15/2024 documented as of this encounter
--- OUTSIDE RECORDS SUMMARY | 2024-07-04 08:15 | External Medical Summary ---
Author Name Unknown Address Unknown Organization K01:[facility] [place] - [address] [place] [address] Laboratory Report Ordering Provider Test Date Status ENZO BOOTH 06/20/2024 08:42:52 Final Normal: <150 mg/ g creatinine
High: 150-500 mg/g creatinine
Very High: >500 mg/g creatinine
Nephrotic: >3000 mg/g creatinine Observation Date Value Abnormality Reference (Units ) Status Protein/Creatinine [Ratio] in Urine 06/20/2024 08:42:52 100 <150 (mg/g ) Final Protein, Urine 06/20/2024 08:42:52 9 (mg/dL) Final Creatinine, Urine 06/20/2024 08:42:52 90 (mg/dL) Final Performing Location [facility] [place] - [address] [place] [address]
--- NOTE | 2024-07-04 09:43 | Obstetrical Progress Note ---
Date of Service July 04, 2024 Assessment & Plan (1) Prolonged gestation: Plan: 28yo at 40+ weeks induction day #1 FHR; CAT1 CTx 1-3min. mild intensity VE //ant EFW by luis fernando; 7-8Lbs Bedside sono; VT Engle bulb placed in cervix with 35cc saline Pt tolerated procedure well Admit labs with [facility] labs. bP ON ARRIVAL WAS 140/90 No headache ,SOB, RUQ pain or visual changes Admission and Anticipated Discharge Date Admission Date: July 04, 2024 Results & Data Vital Signs (Past 12 Hours) Vital Signs Temp Pulse Resp BP 07/04/24 08:41 36.5 C 18 07/04/24 08:30 65 07/04/24 08:30 128/72 07/04/24 08:16 69 07/04/24 08:16 144/92 H 07/04/24 07:58 74 141/84 H
[2024-07-04] MEDS ORDERED: OXYTOCIN 30 UNITS/NSS 30 UNITS/500 ML BAG IV PRN (09:44)
[2024-07-04] MEDS ORDERED: LIDOCAINE 1% LOCAL 20 ML VIAL INFIL PRN (09:44)
[2024-07-04] MEDS: SODIUM CHLORIDE 0.9% 1,000 ML IV SCH (10:17)
[2024-07-04] MEDS: OXYTOCIN 30 UNITS/NSS 30 UNITS/500 ML BAG IV PRN (10:18)
[2024-07-04 10:33] LABS: Creatinine Urine Random 40.2 mg/dl; Protein Creatinine Ratio Urine 0.1 (0-0.2); Total Protein Urine Random 4.9 mg/dl (0-11.9)
[2024-07-04 10:58] LABS: Hematocrit (blood only) 37.4 % (37.0-47.0); Hemoglobin 12.5 g/dl (12.0-16.0); Mean Corpuscular Hemoglobin 31.1 pg (25.0-34.0); Mean Corpuscular Hgb Conc 33.4 g/dL (32.0-36.0); Mean Platelet Volume 11.9 fL (9.4-12.4); Platelet Count 199 K/uL (130-400); RDW Coefficient of Variation 13.3 % (11.5-14.5); RDW Standard Deviation 45.9 fL (36.4-46.3); Red Blood Count 4.02 M/uL (4.20-5.40); White Blood Count 8.33 K/ul (4.8-10.8)
[2024-07-04 11:19] LABS: Albumin Globulin Ratio 1.1 (0.9-2); Albumin Level 3.4 gm/dl (3.4-5.0); BUN Creatinine Ratio 21.9 (10-20); Bilirubin,Total 0.5 mg/dl (0.2-1.0); Calcium 8.8 mg/dl (8.6-10.3); Creatinine Clr Calc Pharmacy 129.3 ml/min; Globulin 3.1 gm/dl (2.5-4.0); Potassium 3.9 mmol/L (3.5-5.1); Total Protein 6.5 gm/dl (6.0-8.3)
[2024-07-04] MEDS: fentANYL 2 MCG/ML BUPIVacaine 0.125%-NSS 100ML BAG ONE (21:54)
[2024-07-04] MEDS: LIDOCAINE 2%/EPINEPHRINE 1:200,000 20 ML PF ONE (21:54)
[2024-07-04] MEDS: SODIUM CHLORIDE 0.9% PF INJ 10 ML VIAL ONE (21:54)
[2024-07-04] MEDS: BUPIVACAINE 0.25% PF 30 ML VIAL ONE (21:54)
[2024-07-04] MEDS: ePHEDrine sulfate 50 MG/ML AMP ONE (21:55)
[2024-07-04] MEDS: fentaNYL citrate PF 100 MCG/2 ML VIAL ONE (21:55)
[2024-07-04] MEDS ORDERED: SODIUM CHLORIDE 0.9% PF INJ 10 ML VIAL EPI PRN (21:56)
[2024-07-04] MEDS ORDERED: ePHEDrine sulfate 50 MG/ML AMP IV PRN (21:56)
[2024-07-04] MEDS ORDERED: ONDANSETRON INJ 2 MG/ML 2 ML VIAL IV PRN (21:56)
[2024-07-04] MEDS ORDERED: BUPIVACAINE 0.25% PF 30 ML VIAL EPI PRN (21:56)
[2024-07-04] MEDS ORDERED: PROMETHAZINE 6.25 MG/50.25 ML BAG IV PRN (21:56)
[2024-07-04] MEDS ORDERED: NALOXONE HCL 1 MG in SODIUM CHLORIDE 0.9% 1,000 ML IV PRN (21:56)
[2024-07-04] MEDS ORDERED: NALOXONE HCL 0.4 MG/1 ML VIAL/CARP IV PRN (21:56)
[2024-07-04] MEDS ORDERED: LIDOCAINE 2% MPF LOCAL 5 ML VIAL EPI PRN (21:56)
[2024-07-04] MEDS ORDERED: ROPIVACAINE 0.5% PF 5 MG/ML 20 ML VIAL EPI PRN (21:56)
[2024-07-04] MEDS ORDERED: fentaNYL citrate PF 100 MCG/2 ML VIAL EPI PRN (21:56)
[2024-07-04] MEDS ORDERED: NALBUPHINE HCL INJ 10 MG/ML AMP IV PRN (21:56)
[2024-07-04] MEDS ORDERED: diphenhydrAMINE 50 MG/ML VIAL IV PRN (21:56)
--- NOTE | 2024-07-04 21:56 | Anesthesiology Consultation ---
Date of Service July 04, 2024 Assessment & Plan Chart Review Chart Review: Patient NOT seen in Pre Admission Testing and Acceptable Risk for Labor Epidural Consults Requested none ASA ASA2 Proposed Anesthesia Anesthesia Type: Labor Epidural Risk / Benefits Reviewed With: PT / POA / Parent / Guardian, Accepts Plan and Informed Consent Obtained History Height/Weight Height: 5 ft 4 in Weight: 97.976 kg Allergies Allergy/AdvReac Type Severity Reaction Status Date / Time No Known Drug Allergies Allergy Unknown Verified 07/04/24 08:09 Medications Home Medications Medication Instructions Recorded Confirmed Last Taken methylphenidate HCl 27 mg 27 mg PO DAILY PRN ADHD 07/04/24 07/04/24 07/02/24 tablet,extended release 24 hr (Concerta) vits no.124-ferrous fum 1 tab PO DAILY 07/04/24 07/04/24 07/04/24 27 mg iron-folic acid 800 mcg tablet ( Vitamin) Active Medications Generic Name Dose Route Start Last Admin Trade Name Freq PRN Reason Stop Dose Admin Sodium Chloride 1,000 mls @ 50 mls/hr 07/04/24 10:00 07/04/24 21:21 Nss IV 07/05/24 09:59 999 mls/hr .Q20H MARIFER Administration Oxytocin 30 units in 500 mls @ 18 mls/hr 07/04/24 10:09 07/04/24 20:15 Pitocin 30 Units/Nss IV 07/06/24 10:08 1.08 units/hr .Q24H PRN 18 mls/hr Labor Induction/Augmentation Titration Protocol 1.08 UNITS/HR Past Medical History Medical History (Updated 07/04/24 @ 09:40 by Kirk García MD) ADHD (attention deficit hyperactivity disorder) Exercise / Class Metabolic Activity II 4-5 Yardwork/Stairs/Walk up hill Past Family History Family History (Updated 07/04/24 @ 08:12 by Keerthi Corral RN) Grandmother (Maternal) Cancer Past Surgical History Surgical History (Updated 07/04/24 @ 08:11 by Keerthi Corral RN) No history of previous surgery Past Anesthesia History No Hx of Anesthesia Complications and No Family Hx of Anesthesia Complications History of PONV No Hx of PONV and No Hx of Motion Sickness Social History Smoking Status: Never smoker Hx Alcohol Use: No Hx Substance Use: No Physical Exam Vital Signs Last Vital Signs Temp 36.8 C 07/04/24 21:00 Pulse 76 07/04/24 21:55 Resp 18 07/04/24 21:00 BP 107/61 07/04/24 21:55 Pulse Ox 97 07/04/24 21:52 ENMT Mouth: no dentition abnormality Thyromental Distance: > or= 3.5 Finger Breadths Mallampati Class: II Neck normal visual inspection Respiratory normal respiratory effort Auscultation: lungs clear to auscultation bilaterally Cardiovascular Rate/Rhythm: regular rate and regular rhythm Psychiatric Orientation: alert Testing Laboratory Results 07/04/24 10:45 07/04/24 10:45 Blood Type A Positive 07/04/24 10:45 Antibody Screen NEGATIVE 07/04/24 10:45
[2024-07-04] MEDS: fentaNYL citrate PF 100 MCG/2 ML VIAL EPI STA (22:40)
[2024-07-04] MEDS: LIDOCAINE 2%/EPINEPHRINE 1:200,000 20 ML PF EPI STA (22:40)
[2024-07-04] MEDS: BUPIVACAINE 0.25% PF 30 ML VIAL EPI STA (22:40)
[2024-07-04] MEDS: SODIUM CHLORIDE 0.9% PF INJ 10 ML VIAL EPI STA (22:40)
[2024-07-05] MEDS: fentANYL 2 MCG/ML BUPIVacaine 0.125%-NSS 100ML BAG EPI PRN (07:03)
--- NOTE | 2024-07-05 07:39 | Obstetrical Progress Note ---
Date of Service July 05, 2024 Assessment & Plan (1) Prolonged gestation: Plan: Pt doing well FHR; CAT1 Ctx; 1-2 On Pitocin VE; 9cm Anticpate VD Admission and Anticipated Discharge Date Admission Date: July 04, 2024 Results & Data Vital Signs (Past 12 Hours) Vital Signs Temp Pulse Resp BP Pulse Ox 07/05/24 07:32 74 100 07/05/24 07:27 81 100 07/05/24 07:22 75 99 07/05/24 07:17 77 99 07/05/24 07:15 36.8 C 20 07/05/24 07:12 86 99 07/05/24 07:11 77 148/88 H 07/05/24 07:07 82 99 07/05/24 07:02 77 100 07/05/24 06:57 62 97 07/05/24 06:56 62 131/78 07/05/24 06:52 66 97 07/05/24 06:47 66 97 07/05/24 06:42 98 07/05/24 06:42 70 07/05/24 06:42 66 125/84 07/05/24 06:37 73 99 07/05/24 06:32 72 99 07/05/24 06:30 75 128/80 07/05/24 06:27 85 99 07/05/24 06:25 97 H 175/79 H 07/05/24 06:22 88 100 07/05/24 06:17 65 98 07/05/24 06:12 63 98 07/05/24 06:11 62 126/70 07/05/24 06:07 61 98 07/05/24 06:02 65 98 07/05/24 05:57 77 100 07/05/24 05:56 70 134/76 07/05/24 05:52 69 100 07/05/24 05:47 61 99 07/05/24 05:42 60 98 07/05/24 05:41 59 L 121/69 07/05/24 05:37 60 100 07/05/24 05:32 60 100 07/05/24 05:27 100 07/05/24 05:27 61 07/05/24 05:27 76 133/68 07/05/24 05:22 67 99 07/05/24 05:17 60 98 07/05/24 05:12 60 97 07/05/24 05:10 60 104/58 L 07/05/24 05:07 59 L 97 07/05/24 05:02 60 97 07/05/24 05:00 18 07/05/24 05:00 36.8 C 18 07/05/24 04:57 66 109/61 98 07/05/24 04:52 70 99 07/05/24 04:47 66 100 07/05/24 04:42 64 99 07/05/24 04:41 63 109/58 L 07/05/24 04:37 61 97 07/05/24 04:32 59 L 97 07/05/24 04:27 63 98 07/05/24 04:26 69 104/55 L 07/05/24 04:22 60 97 07/05/24 04:17 64 97 07/05/24 04:12 60 104/59 L 98 07/05/24 04:07 59 L 97 07/05/24 04:02 59 L 96 07/05/24 03:57 97 07/05/24 03:57 59 L 07/05/24 03:57 59 L 101/54 L 07/05/24 03:52 59 L 97 07/05/24 03:47 59 L 98 07/05/24 03:42 98 07/05/24 03:42 63 07/05/24 03:42 57 L 104/58 L 07/05/24 03:37 62 97 07/05/24 03:32 66 98 07/05/24 03:27 70 99 07/05/24 03:26 68 113/71 07/05/24 03:22 77 98 07/05/24 03:17 78 99 07/05/24 03:15 18 07/05/24 03:15 36.8 C 18 07/05/24 03:12 91 H 100 07/05/24 03:11 68 113/67 07/05/24 03:07 59 L 97 07/05/24 03:02 60 97 07/05/24 02:57 59 L 98 07/05/24 02:56 59 L 108/61 07/05/24 02:52 59 L 98 07/05/24 02:47 59 L 98 07/05/24 02:42 63 98 07/05/24 02:41 71 118/68 07/05/24 02:37 78 100 07/05/24 02:32 87 100 07/05/24 02:27 59 L 97 07/05/24 02:26 59 L 108/60 07/05/24 02:22 58 L 97 07/05/24 02:17 58 L 97 07/05/24 02:12 59 L 99 07/05/24 02:10 58 L 114/65 07/05/24 02:07 62 98 07/05/24 02:02 59 L 99 07/05/24 01:57 60 99 07/05/24 01:56 58 L 115/60 07/05/24 01:52 58 L 96 07/05/24 01:47 58 L 96 07/05/24 01:42 98 07/05/24 01:42 59 L 07/05/24 01:42 58 L 115/61 07/05/24 01:37 59 L 98 07/05/24 01:32 58 L 98 07/05/24 01:27 60 98 07/05/24 01:25 59 L 110/68 07/05/24 01:22 59 L 98 07/05/24 01:17 59 L 98 07/05/24 01:12 60 98 07/05/24 01:10 60 114/67 07/05/24 01:07 60 98 07/05/24 01:02 58 L 99 07/05/24 01:00 18 07/05/24 01:00 37.1 C 18 07/05/24 00:57 67 99 07/05/24 00:55 60 106/63 07/05/24 00:52 60 99 07/05/24 00:47 60 98 07/05/24 00:42 60 98 07/05/24 00:37 60 98 07/05/24 00:32 61 98 07/05/24 00:27 61 98 07/05/24 00:25 60 110/66 07/05/24 00:22 60 99 07/05/24 00:17 69 99 07/05/24 00:12 98 07/05/24 00:12 67 07/05/24 00:12 81 111/62 07/05/24 00:07 82 98 07/05/24 00:02 80 100 07/04/24 23:57 98 07/04/24 23:57 60 07/04/24 23:55 60 07/04/24 23:55 119/73 07/04/24 23:52 96 07/04/24 23:52 60 07/04/24 23:47 97 07/04/24 23:47 61 07/04/24 23:42 97 07/04/24 23:42 61 07/04/24 23:40 61 07/04/24 23:40 120/74 07/04/24 23:37 98 07/04/24 23:37 61 07/04/24 23:32 98 07/04/24 23:32 61 07/04/24 23:27 98 07/04/24 23:27 61 07/04/24 23:25 61 07/04/24 23:25 122/76 07/04/24 23:22 98 07/04/24 23:22 61 07/04/24 23:17 99 07/04/24 23:17 62 07/04/24 23:12 98 07/04/24 23:12 63 07/04/24 23:10 61 07/04/24 23:10 116/73 07/04/24 23:07 97 07/04/24 23:07 62 07/04/24 23:02 98 07/04/24 23:02 62 07/04/24 23:00 18 07/04/24 23:00 36.9 C 18 07/04/24 22:57 97 07/04/24 22:57 59 L 07/04/24 22:55 75 07/04/24 22:55 121/77 07/04/24 22:52 98 07/04/24 22:52 62 07/04/24 22:47 97 07/04/24 22:47 62 07/04/24 22:42 97 07/04/24 22:42 63 07/04/24 22:41 63 07/04/24 22:41 115/72 07/04/24 22:37 98 07/04/24 22:37 64 07/04/24 22:32 97 07/04/24 22:32 62 07/04/24 22:28 61 07/04/24 22:28 100/65 07/04/24 22:27 98 07/04/24 22:27 60 07/04/24 22:22 98 07/04/24 22:22 65 07/04/24 22:17 98 07/04/24 22:17 59 L 07/04/24 22:17 106/67 07/04/24 22:15 18 07/04/24 22:15 18 07/04/24 22:12 96 07/04/24 22:12 59 L 07/04/24 22:10 63 07/04/24 22:10 98/55 L 07/04/24 22:07 97 07/04/24 22:07 59 L 07/04/24 22:06 62 07/04/24 22:06 92/51 L 07/04/24 22:03 69 07/04/24 22:03 99/53 L 07/04/24 22:02 97 07/04/24 22:02 75 07/04/24 21:57 98 07/04/24 21:57 74 07/04/24 21:55 76 07/04/24 21:55 107/61 07/04/24 21:54 77 07/04/24 21:54 107/60 07/04/24 21:53 77 07/04/24 21:53 112/63 07/04/24 21:52 97 07/04/24 21:52 79 07/04/24 21:52 73 07/04/24 21:52 117/70 07/04/24 21:51 70 07/04/24 21:51 118/72 07/04/24 21:50 70 07/04/24 21:50 122/70 07/04/24 21:49 67 07/04/24 21:49 122/69 07/04/24 21:48 78 07/04/24 21:48 119/69 07/04/24 21:47 99 07/04/24 21:47 73 07/04/24 21:42 100 07/04/24 21:42 75 07/04/24 21:37 99 07/04/24 21:37 74 07/04/24 21:00 18 07/04/24 21:00 36.8 C 18 07/04/24 20:51 68 07/04/24 20:51 140/84
[2024-07-05] MEDS ORDERED: BENZOCAINE 20% SPRY 85 APPLN/85 GM CAN EXT PRN (16:49)
[2024-07-05] MEDS ORDERED: HYDROCORTISONE ACETATE 25 MG SUPP PR PRN (16:49)
[2024-07-05] MEDS ORDERED: oxyCODONE/ACETAMINOPHEN 5mg/325mg TAB PO PRN (16:49)
[2024-07-05] MEDS ORDERED: ACETAMINOPHEN W/CODEINE #3 1 TAB PO PRN (16:49)
[2024-07-05] MEDS ORDERED: OXYTOCIN 30 UNITS/NSS 30 UNITS/500 ML BAG IV PRN (16:49)
[2024-07-05] MEDS ORDERED: bisacodyL 10 MG SUPP PR PRN (16:49)
--- NOTE | 2024-07-05 16:54 | Delivery Summary ---
Vaginal Delivery Summary Date of Service July 05, 2024 Vaginal Delivery Summary Patient was followed in the office for care and delivery. Patient was well dated with a first trimester ultrasound. Patient present gestation is 40 weeks and 2 days. Patient was brought in for induction. Eventually she was placed on PET. Received epidural for pain control. Went to full dilatation. And over about a 3-hour. Pushed out a live female via direct occiput anterior position over an intact perineum. was suctioned through the mouth and the nose. Shoulders were delivered without difficulty. Cord was allowed to pulse for 1 full minute. Cord was then clamped and cut by the father. Cord blood was taken. With IV Pitocin running the placenta was removed intact. Following this inspection revealed a small midline superficial laceration at 5:00. This was repaired with a running 2-0 Vicryl. There was another small laceration at 7:00 this was also repaired with a running 2-0 Vicryl. There was also a laceration of the labia minora on the left side which was also repaired with a running 2-0 Vicryl following this hemostasis was excellent patient tolerated the procedure well. IM Methergine was given to help contract the uterus. Quantitative blood loss was 16 mL.
[2024-07-05] MEDS: METHYLERGONOVINE MALEATE 0.2 MG/ML AMP IM ONE (16:57)
[2024-07-05] MEDS: DIPHTHER/TETAN/PERTUS Vaccine (Tdap, Adol/Adult) 0.5mL IM ONE (17:05)
[2024-07-05] MEDS: LABETALOL HCL 100 MG TAB ONE (17:40)
[2024-07-05] MEDS: LABETALOL HCL 200 MG TAB PO SCH (17:41)
[2024-07-05] MEDS: IBUPROFEN 600 MG TAB PO PRN (17:42)
--- NOTE | 2024-07-05 18:30 | Anesthesia Procedure Note ---
Date of Service July 05, 2024 Anesthesia Post Epidural Note Vital Signs Vital Signs: Temp Pulse Resp BP Pulse Ox 36.7 C 62 20 155/85 H 99 07/05/24 16:15 07/05/24 18:21 07/05/24 17:56 07/05/24 18:21 07/05/24 16:44 Notes Mental Status: alert / awake / arousable and participated in evaluation Nausea / Vomiting: adequately controlled Pain: adequately controlled Airway Patency, RR, SpO2: stable & adequate BP & HR: stable & adequate Hydration State: stable & adequate Neuraxial Anesthesia: was administered and sensory block resolved Anesthetic Complications: no major complications apparent and Pt Satisfied with anesthetic care Epidural: Removed without complications and With tip intact
[2024-07-05] MEDS: NIFEdipine EXTENDED REL 30 MG TABCR PO SCH (19:44)
[2024-07-05] MEDS: DOCUSATE SODIUM 100 MG CAP PO SCH (21:30)
[2024-07-06 06:20] LABS: Hematocrit (blood only) 34.8 % (37.0-47.0); Hemoglobin 11.9 g/dl (12.0-16.0); Mean Corpuscular Hemoglobin 31.7 pg (25.0-34.0); Mean Corpuscular Hgb Conc 34.2 g/dL (32.0-36.0); Mean Corpuscular Volume 92.8 fL (80.0-100.0); Mean Platelet Volume 12.1 fL (9.4-12.4); Platelet Count 164 K/uL (130-400); RDW Coefficient of Variation 13.5 % (11.5-14.5); RDW Standard Deviation 46.2 fL (36.4-46.3); Red Blood Count 3.75 M/uL (4.20-5.40); White Blood Count 20.49 K/ul (4.8-10.8)
[2024-07-06] MEDS: PRENATAL VITAMIN 1 TAB PO SCH (07:25)
[2024-07-06 09:28] LABS: Bilirubin,Total 0.7 mg/dl (0.2-1.0); Calcium 9.2 mg/dl (8.6-10.3); Potassium 3.9 mmol/L (3.5-5.1)
[2024-07-06 09:34] LABS: Albumin Globulin Ratio 1.1 (0.9-2); Creatinine Clr Calc Pharmacy 107.2 ml/min; Globulin 2.8 gm/dl (2.5-4.0); Total Protein 5.8 gm/dl (6.0-8.3)
--- NOTE | 2024-07-06 10:03 | Obstetrical Progress Note ---
Date of Service July 06, 2024 Assessment & Plan Admission and Anticipated Discharge Date Admission Date: July 04, 2024 Subjective Patient is seen and examined. She feels well, no complaints. Ambulating without dizziness Voiding without difficulty Tolerating regular diet with out N&V Bleeding is minimal No MCCORMICK/ Chanhe in vision/fever/ chills/ CP/ SOB/ N&V/ Leg pain Breast feeding without problems Vital Signs Temp Pulse Resp BP Pulse Ox O2 Del Method 07/06/24 08:00 36.4 C L 59 L 24 110/73 98 Room Air 07/06/24 04:30 36.5 C 52 L 16 117/74 Room Air 07/06/24 00:30 36.5 C 58 L 18 111/72 Room Air Lab Results 07/04/24 07/04/24 07/06/24 Range/Units 09:30 10:45 05:53 WBC 8.33 20.49 H (4.8-10.8) K/ul RBC 4.02 L 3.75 L (4.20-5.40) M/uL Hgb 12.5 11.9 L (12.0-16.0) g/dl Hct 37.4 34.8 L (37.0-47.0) % MCV 93.0 92.8 (80.0-100.0) fL MCH 31.1 31.7 (25.0-34.0) pg MCHC 33.4 34.2 (32.0-36.0) g/dL RDW Std Deviation 45.9 46.2 (36.4-46.3) fL RDW Coeff of Fly 13.3 13.5 (11.5-14.5) % Plt Count 199 164 (130-400) K/uL MPV 11.9 12.1 (9.4-12.4) fL Sodium 135 L (136-145) mmol/L Potassium 3.9 (3.5-5.1) mmol/L Chloride 105 (98-107) mmol/L Carbon Dioxide 24 (21-32) mmol/L Anion Gap 6 (3-11) BUN 16 (6-23) mg/dl Creatinine 0.73 (0.6-1.2) mg/dl Est Cr Clr Drug Dosing 129.3 ml/min eGFR 114.10 BUN/Creatinine Ratio 21.9 H (10-20) Glucose 88 (70-99(Fasting)) mg/dl Calcium 8.8 (8.6-10.3) mg/dl Total Bilirubin 0.5 (0.2-1.0) mg/dl AST 21 (13-39) U/L ALT 20 (7-52) U/L Alkaline Phosphatase 167 H (34-104) U/L Total Protein 6.5 (6.0-8.3) gm/dl Albumin 3.4 (3.4-5.0) gm/dl Globulin 3.1 (2.5-4.0) gm/dl Albumin/Globulin Ratio 1.1 (0.9-2) Ur Random Creatinine 40.2 mg/dl U Random Total Protein 4.9 (0-11.9) mg/dl Protein/Creatinin Ratio 0.1 (0-0.2) Treponema pallidum Ab Negative (Negative) Blood Type A Positive Antibody Screen NEGATIVE 07/06/24 Range/Units 09:02 WBC (4.8-10.8) K/ul RBC (4.20-5.40) M/uL Hgb (12.0-16.0) g/dl Hct (37.0-47.0) % MCV (80.0-100.0) fL MCH (25.0-34.0) pg MCHC (32.0-36.0) g/dL RDW Std Deviation (36.4-46.3) fL RDW Coeff of Fly (11.5-14.5) % Plt Count (130-400) K/uL MPV (9.4-12.4) fL Sodium 137 (136-145) mmol/L Potassium 3.9 (3.5-5.1) mmol/L Chloride 111 H (98-107) mmol/L Carbon Dioxide 19 L (21-32) mmol/L Anion Gap 7 (3-11) BUN 15 (6-23) mg/dl Creatinine 0.88 (0.6-1.2) mg/dl Est Cr Clr Drug Dosing 107.2 ml/min eGFR 91.18 BUN/Creatinine Ratio 17.0 (10-20) Glucose 126 H (70-99(Fasting)) mg/dl Calcium 9.2 (8.6-10.3) mg/dl Total Bilirubin 0.7 (0.2-1.0) mg/dl AST 26 (13-39) U/L ALT 20 (7-52) U/L Alkaline Phosphatase 142 H (34-104) U/L Total Protein 5.8 L (6.0-8.3) gm/dl Albumin 3.0 L (3.4-5.0) gm/dl Globulin 2.8 (2.5-4.0) gm/dl Albumin/Globulin Ratio 1.1 (0.9-2) Ur Random Creatinine mg/dl U Random Total Protein (0-11.9) mg/dl Protein/Creatinin Ratio (0-0.2) Treponema pallidum Ab (Negative) Blood Type Antibody Screen PE: General: Alert, orientedx3, NAD Abd: soft, NT, fundus firm, below Umbilicus Perineum intact, Lochia rubra minimal Ext; NT, no edema AP: 28 yo s/p , ppd# 1, s/p HT after delivery, on PO Labetalol and [place] dipine, BP normal, labs WNL, adjusted dosing VSS Afebrile doing well Continue routine care All questions were answered Anticipate D/C home tomorrow Results & Data Vital Signs (Past 12 Hours) Vital Signs Temp Pulse Resp BP Pulse Ox O2 Del Method 07/06/24 08:00 36.4 C L 59 L 24 110/73 98 Room Air 07/06/24 04:30 36.5 C 52 L 16 117/74 Room Air 07/06/24 00:30 36.5 C 58 L 18 111/72 Room Air
[2024-07-06] MEDS: LABETALOL HCL 100 MG TAB PO SCH (12:31)
[2024-07-06] MEDS: ACETAMINOPHEN 325 MG TAB PO PRN (15:24)
[2024-07-06] MEDS: bisacodyL 5 MG TABEC PO SCH (19:59)
[2024-07-07 07:23] LABS: Basophils # (auto) 0.05 K/uL (0.00-0.20); Basophils % (auto) 0.4 %; Eosinophils # (auto) 0.27 K/uL (0.00-0.50); Eosinophils % (auto) 2.1 %; Hematocrit (blood only) 35.9 % (37.0-47.0); Hemoglobin 12.3 g/dl (12.0-16.0); Immature Granulocytes # (auto) 0.05 K/uL (0.01-0.20); Immature Granulocytes % (auto) 0.4 %; Mean Corpuscular Hemoglobin 31.9 pg (25.0-34.0); Mean Corpuscular Hgb Conc 34.3 g/dL (32.0-36.0); Mean Corpuscular Volume 93.2 fL (80.0-100.0); Mean Platelet Volume 11.9 fL (9.4-12.4); Monocytes # (auto) 0.92 K/uL (0.11-0.59); Monocytes % (auto) 7.2 %; Neutrophils # (auto) 7.43 K/uL (1.40-6.50); Neutrophils % (auto) 57.9 %; Platelet Count 176 K/uL (130-400); RDW Coefficient of Variation 13.7 % (11.5-14.5); RDW Standard Deviation 46.2 fL (36.4-46.3); Red Blood Count 3.85 M/uL (4.20-5.40); White Blood Count 12.82 K/ul (4.8-10.8)
[2024-07-07 08:07] VITALS: BP 127/85; PULSE 60; RESP 16; TEMP 98.4; O2SAT 98
--- NOTE | 2024-07-07 08:46 | Obstetrical Progress Note ---
Date of Service July 07, 2024 Subjective Ambulation: ambulating normally Voiding: no voiding problems Passing Gas:: Yes Diet Tolerance:: regular diet Feeding Type:: breast feeding Current Pain Level(1-10): 0 doing well. plans for d/c today. Physical Exam Constitutional WD/WN, vitals as above Gastrointestinal (Abdomen) Inspection/Auscultation: abdomen normal to inspection abdomen soft and non-tender. fundus firm below U. Results & Data Vital Signs (Past 12 Hours) Vital Signs Temp Pulse Resp BP Pulse Ox O2 Del Method 07/07/24 07:42 36.9 C 60 16 127/85 98 Room Air 07/07/24 04:00 36.5 C 50 L 18 122/84 Room Air Laboratory Results 07/04/24 07/04/24 07/06/24 09:30 10:45 05:53 WBC 8.33 20.49 H RBC 4.02 L 3.75 L Hgb 12.5 11.9 L Hct 37.4 34.8 L MCV 93.0 92.8 MCH 31.1 31.7 MCHC 33.4 34.2 RDW Std Deviation 45.9 46.2 RDW Coeff of Fly 13.3 13.5 Plt Count 199 164 MPV 11.9 12.1 Immature Gran % (Auto) Neut % (Auto) Lymph % (Auto) Newton % (Auto) Eos % (Auto) Baso % (Auto) Neut # (Auto) Lymph # (Auto) Newton # (Auto) Eos # (Auto) Baso # (Auto) Immature Gran # (Auto) Sodium 135 L Potassium 3.9 Chloride 105 Carbon Dioxide 24 Anion Gap 6 BUN 16 Creatinine 0.73 Est Cr Clr Drug Dosing 129.3 eGFR 114.10 BUN/Creatinine Ratio 21.9 H Glucose 88 Calcium 8.8 Total Bilirubin 0.5 AST 21 ALT 20 Alkaline Phosphatase 167 H Total Protein 6.5 Albumin 3.4 Globulin 3.1 Albumin/Globulin Ratio 1.1 Ur Random Creatinine 40.2 U Random Total Protein 4.9 Protein/Creatinin Ratio 0.1 Treponema pallidum Ab Negative Blood Type A Positive Antibody Screen NEGATIVE 07/06/24 07/07/24 09:02 06:54 WBC 12.82 H RBC 3.85 L Hgb 12.3 Hct 35.9 L MCV 93.2 MCH 31.9 MCHC 34.3 RDW Std Deviation 46.2 RDW Coeff of Fly 13.7 Plt Count 176 MPV 11.9 Immature Gran % (Auto) 0.4 Neut % (Auto) 57.9 Lymph % (Auto) 32.0 Newton % (Auto) 7.2 Eos % (Auto) 2.1 Baso % (Auto) 0.4 Neut # (Auto) 7.43 H Lymph # (Auto) 4.10 H Newton # (Auto) 0.92 H Eos # (Auto) 0.27 Baso # (Auto) 0.05 Immature Gran # (Auto) 0.05 Sodium 137 Potassium 3.9 Chloride 111 H Carbon Dioxide 19 L Anion Gap 7 BUN 15 Creatinine 0.88 Est Cr Clr Drug Dosing 107.2 eGFR 91.18 BUN/Creatinine Ratio 17.0 Glucose 126 H Calcium 9.2 Total Bilirubin 0.7 AST 26 ALT 20 Alkaline Phosphatase 142 H Total Protein 5.8 L Albumin 3.0 L Globulin 2.8 Albumin/Globulin Ratio 1.1 Ur Random Creatinine U Random Total Protein Protein/Creatinin Ratio Treponema pallidum Ab Blood Type Antibody Screen
== END 2024-07-07 13:30 | disposition home or self-care (01) | DRG 807 ==
LOC: 4S1 07-04 07:44 → 4E2 07-05 20:36